=== PATIENT | male | born 1970 | race Caucasian/White ===

== ENCOUNTER 2021-01-07 18:25 | Emergency (ER) | payer OTHER ==
[~2021-01-07] VITALS: Ht 182.9 cm; Wt 72.7 kg
[2021-01-07] MEDS ORDERED: morphine 4 MG/ML inj SYRINge IV ONE (18:45)
[2021-01-07] MEDS ORDERED: normal saline 1000ML IV soln IVB ONE ×2 (18:50→20:05)
[2021-01-07] MEDS ORDERED: ketorolac trometh. 30mg/ml inj. IV ONE (18:50)
[2021-01-07 19:14] LABS: ALANINE AMINOTRANSFERASE 40 U/L (12-78); ALBUMIN 3.7 G/DL (3.4-5.0); ALBUMIN/GLOBULIN RATIO 1.4 (1.1-1.5); ALKALINE PHOSPHATASE 49 IU/L (46-116); ANION GAP 12 (8-16); ASPARTATE AMINO TRANSFERASE 46 U/L (10-37); BILIRUBIN,TOTAL 0.3 MG/DL (0.1-1.0); BLOOD UREA NITROGEN 29 MG/DL (7-18); BUN/CREATININE RATIO 30.9 (5.4-32.0); CALCIUM 9.1 MG/DL (8.5-10.1); CHLORIDE 105 MMOL/L (99-107); CREATININE 0.94 MG/DL (0.60-1.10); GLUCOSE 99 MG/DL (70-104); POTASSIUM 3.4 MMOL/L (3.5-5.1); SODIUM 143 MMOL/L (135-145); TOTAL CARBON DIOXIDE 25.6 MMOL/L (24-32); TOTAL PROTEIN 6.4 G/DL (6.4-8.2); eGFR 84 ML/MIN
[2021-01-07 19:16] LABS: BASOPHILS # (AUTO) 0.1 X10'3 (0-0.2); BASOPHILS % (AUTO) 1.2 % (0-1); EOSINOPHILS # (AUTO) 0.5 X10'3 (0-0.9); EOSINOPHILS % (AUTO) 8.7 % (0-6); HEMATOCRIT 41.6 % (42.0-52.0); HEMOGLOBIN 14.3 g/dl (14.0-17.9); LYMPHOCYTES # (AUTO) 1.9 X10'3 (1.1-4.8); LYMPHOCYTES % (AUTO) 32.8 % (21-51); MEAN CORPUSCULAR HEMOGLOBIN 31.2 PG (27.0-31.0); MEAN CORPUSCULAR HGB CONC 34.3 g/dL (33.0-36.5); MEAN CORPUSCULAR VOLUME 90.9 FL (78-98); MEAN PLATELET VOLUME 9.5 FL (7.4-10.4); MONOCYTES # (AUTO) 0.5 X10'3 (0-0.9); MONOCYTES % (AUTO) 9.4 % (2-12); NEUTROPHILS # (AUTO) 2.7 X10'3 (1.8-7.7); NEUTROPHILS % (AUTO) 47.9 % (42-75); PLATELET COUNT 180 X10'3 (140-440); RED BLOOD COUNT 4.57 X10'6 (4.70-6.10); RED CELL DISTRIBUTION WIDTH 12.6 % (11.5-14.5); WHITE BLOOD COUNT 5.7 X10'3 (4.5-11.0)
[2021-01-07 19:21] LABS: MAGNESIUM 2.1 MG/DL (1.5-2.4); TROPONIN I < 0.04 NG/ML (0.0-0.05)
[2021-01-07 19:36] LABS: D-DIMER < 0.19 MG/L FEU (0-0.50)
[2021-01-07 22:21] VITALS: BP 130/81
== END 2021-01-07 22:23 | disposition home or self-care (01) ==
LOC: ER 18:26
DX: I31.9 Disease of pericardium, unspecified (principal); R07.89 Other chest pain; R06.02 Shortness of breath; R11.0 Nausea; Z91.018 Allergy to other foods
CPT/HCPCS: 36415; 71045; 80053; 83735; 83880; 84484; 85025; 85379; 93005; 93308; 96361; 96374; 96375; 99285; J1885; J2270; J7030

== ENCOUNTER → 2021-01-11 | Outpatient (CLI) | payer OTHER ==
[~2021-01-11] MED LIST: iohexol 350MG/ML 100ml bottle IV ONE
== END | disposition home or self-care (01) ==
LOC: 64 CT 12:25
PROVIDERS: ATTEND Internal Medicine Cardiovascular Disease
DX: I25.10 Atherosclerotic heart disease of native coronary artery without angina pectoris (principal)
CPT/HCPCS: 71275; 74174; Q9967